=== PATIENT | male | born 1960 | race Caucasian/White ===

== ENCOUNTER 2017-02-22 10:31 | Emergency (ER) | payer MEDICAID ==
[~2017-02-22] VITALS: Ht 175.3 cm; Wt 72.6 kg
--- NOTE | 2017-02-22 10:36 | NUR ---
PT TO BED 5 AT THIS TIME BY EMS.
[2017-02-22 10:41] VITALS: BP 122/68
[2017-02-22] MEDS ORDERED: KETOROLAC 60 MG/2 ML VIAL IM ONE (10:55)
--- NOTE | 2017-02-22 11:24 | NUR ---
pt to x-ray via rosa
--- NOTE | 2017-02-22 11:40 | NUR ---
RETURNED FROM X-RAY---A/O X4 NO S/S RESP DISTRESS
--- NOTE | 2017-02-22 13:00 | NUR ---
PT ATE 100% OF LUNCH---CLEAN DRY CLOTHING REQUEST MADE TO SECURITY
--- NOTE | 2017-02-22 14:08 | NUR ---
NEW ANGEL EDUARDO AND SOCKS PROVIDED---PT VERY THANKFUL, A/O X4 FULL CLEAR SPEECH. TAXI VOUCHER PROVIDED WELL
[2017-02-22 14:10] VITALS: BP 133/79
--- NOTE | 2017-02-22 14:10 | NUR ---
Patient discharged with v/s stable. Written and verbal after care instructions given and explained. Patient alert, oriented and verbalized understanding of instructions. Wheel Chair Assisted with to car. All questions addressed prior to discharge. ID band removed. Patient advised to follow up with PMD. Rx of NAPROSYN given. Patient educated on indication of medication including possible reaction and side effects. Opportunity to ask questions provided and answered.
== END 2017-02-22 14:10 | disposition home or self-care (01) ==
LOC: MED 10:31
DX: S70.02XA Contusion of left hip, initial encounter (principal); S20.212A Contusion of left front wall of thorax, initial encounter; F10.10 Alcohol abuse, uncomplicated; G89.29 Other chronic pain; M54.9 Dorsalgia, unspecified; M54.2 Cervicalgia; K21.9 Gastro-esophageal reflux disease without esophagitis; F17.200 Nicotine dependence, unspecified, uncomplicated; W05.0XXA Fall from non-moving wheelchair, initial encounter; Y93.89 Activity, other specified; Y92.89 Other specified places as the place of occurrence of the external cause; Y99.8 Other external cause status
CPT/HCPCS: 71010; 72170; 73502; 96372; 99284; J1885

== ENCOUNTER 2022-03-18 12:54 | Inpatient (IN) | payer MEDICAID ==
[~2022-03-18] VITALS: Ht 175.3 cm; Wt 74.8 kg
[2022-03-18 13:04] VITALS: BP 128/72
--- NOTE | 2022-03-18 13:35 | NUR ---
DR SCHWARTZ AT BEDSIDE EVALUATING PT
--- NOTE | 2022-03-18 14:00 | NUR ---
Lab at bedside.
--- NOTE | 2022-03-18 14:04 | NUR ---
X-Ray at bedside.
[2022-03-18 14:09] LABS: BASOPHILS % (AUTO) 0.4 % (0.0-2.0); EOSINOPHILS # (AUTO) 0.1 K/uL (0-0.4); EOSINOPHILS % (AUTO) 1.1 % (0.0-4.0); HEMATOCRIT 37.3 % (36-52); HEMOGLOBIN 12.6 g/dL (12.0-18.0); LYMPHOCYTES # (AUTO) 1.6 K/uL (2.0-11.5); LYMPHOCYTES % (AUTO) 16.5 % (20.5-51.1); MEAN CORPUSCULAR HEMOGLOBIN 30 pg (27-31); MEAN CORPUSCULAR HGB CONC 34 g/dL (33-37); MEAN CORPUSCULAR VOLUME 90.3 fL (80-94); MONOCYTES # (AUTO) 0.9 K/uL (0.8-1.0); MONOCYTES % (AUTO) 8.8 % (1.7-9.3); NEUTROPHILS # (AUTO) 7.3 K/uL (1.8-7.7); NEUTROPHILS % (AUTO) 73.2 % (42.2-75.2); PLATELET COUNT (AUTO) 119 K/uL (140-450); RED BLOOD CELL COUNT(AUTO) 4.13 MIL/uL (4.20-6.10); RED CELL DISTRIBUTION WIDTH 17.4 % (11.6-13.7); WHITE BLOOD COUNT (AUTO) 9.9 K/uL (4.8-10.8)
[2022-03-18 14:23] LABS: PROTHROMBIN TIME 9.9 secs (10.8-13.4)
[2022-03-18 14:29] LABS: ALBUMIN 2.7 g/dL (3.4-5.0); ANION GAP 13.5 (8-16); CREATININE 0.8 mg/dL (0.6-1.3); POTASSIUM 3.5 mmol/L (3.5-5.1); TOTAL BILIRUBIN 1.5 mg/dL (0.0-1.0)
--- NOTE | 2022-03-18 14:56 | NUR ---
Ultrasound at bedside.
[2022-03-18 15:00] LABS: APPEARANCE,URINE CLEAR (CLEAR); BILIRUBIN,URINE 2+ (NEGATIVE); BLOOD, URINE 3+ (NEGATIVE); COLOR,URINE BROWN (YELLOW); LEUKOCYTE ESTERASE ,URINE 1+ (NEGATIVE); NITRITE, URINE POSITIVE (NEGATIVE); UGLUCOSE TRACE (NEGATIVE)
--- NOTE | 2022-03-18 15:12 | NUR ---
1 y/o male referred here from [facility] to r/o DVT. Patient is noted with +4 pitting edema to left leg. Patient is noted with a pressure sore to left heel. Patient has a large blister covering his whole top area of foot and is currently draining yellow clear liquid. Patient has two skin tears to left inner calf and left inner ankle. Patient has +2 pitting edema to right lower leg. Patient has 10/10 pain to legs. Patient has Hernandez Catheter in place. Medical History: BPH, HTN, "Kidney and Liver Problems" NKDA
[2022-03-18 15:17] LABS: RBC,URINE 11-20 (MOD) /HPF (0-5)
[2022-03-18 15:18] LABS: OTHER CASTS, URINE None Seen /LPF (None Seen)
[2022-03-18] MEDS ORDERED: NACL 0.9% 1,000 ML IV ONE ×2 (15:20→17:30)
[2022-03-18] MEDS ORDERED: cefTRIAXone 1,000 MG VIAL ONE (16:19)
[2022-03-18] MEDS ORDERED: ZOLPIDEM 10 MG TAB PO PRN (17:20)
[2022-03-18] MEDS ORDERED: DOCUSATE SODIUM 100 MG GELCAP PO PRN (17:20)
[2022-03-18] MEDS ORDERED: ONDANSETRON 4 MG/2 ML VIAL IVP PRN (17:20)
[2022-03-18] MEDS ORDERED: POTASSIUM CHLORIDE 10 MEQ TABER PO PRN (17:20)
[2022-03-18] MEDS ORDERED: MORPHINE SULFATE 2 MG/ML SYR IVP PRN (17:20)
[2022-03-18] MEDS ORDERED: ACETAMINOPHEN 325 MG TAB PO PRN (17:20)
[2022-03-18] MEDS ORDERED: ZOLPIDEM 5 MG TAB PO PRN (17:27)
--- NOTE | 2022-03-18 17:45 | NUR ---
Patient is resting in bed, respirations even and unlabored. All needs met by staff.
--- NOTE | 2022-03-18 19:11 | NUR ---
Vi-care rendered. Patient was made clean and dry.
--- NOTE | 2022-03-18 19:22 | NUR ---
Report given to PUMA Schwartz for transfer of care.
--- NOTE | 2022-03-18 20:02 | NUR ---
Patient will be admitted to care of DR SILVER. Admited to Med/Surg. Will go to room 125B. Belongings list completed. Report to PUMA GRAMAJO.
--- NOTE | 2022-03-18 20:40 | NUR ---
Admitted from ER TO MED SURGICAL UNIT, with chief complaint of PAIN AND SWELLING IN THE LEFT LEG STARTED THREE WEEKS AGO. 61 y/o ,Male, Cooperative,AWAKE, A/OX3. VERBALIZED HE WANTS MEDICATION FOR WITHDRAWAL SYMPTOMS. RESPIRATION EVEN AND UNLABORED. LUNGS CLEAR ON BILATERAL AUSCULTATION. ABDOMEN SOFT, NON-TENDER WITH POSITIVE BOWEL SOUNDS. IV OF NS INFUSING AT 100 ML/HR AT THE LEFT HAND G22. HEAD TO TOE ASSESSMENT DONE WITH PUMA ARANGO. PATIENT HAS MULTIPLE WOUNDS, LEFT HEEL, LEFT INNER ANKLE, LEFT INNER CALF CALF AND SACRAL. WITH F/C THAT WAS CHANGED IN ER DRAINING CLEAR DARK YELLOW URINE. PATIENT IS HOMELESS. NOTED PITTING EDEMA 3+ ON LEFT LOWER EXTREMITY. DENIES PAIN 0/10.oriented to call light, bed, phone,television, bathroom, smoking policy,visiting hours, procedures, ID bracelet on. Belongings list checked.
--- NOTE | 2022-03-18 21:30 | NUR ---
ELEVATED LEFT LEG ON 2 PILLOWS.
[2022-03-18] MEDS ORDERED: chlordiazePOXIDE 25 MG CAP PO SCH (21:55)
[2022-03-18] MEDS ORDERED: LORazepam 1 MG TAB PO PRN (21:55)
--- NOTE | 2022-03-18 22:15 | NUR ---
LIBRIUM 25MG/TAB P.O GIVEN ORDERED - BP 122/ 82 , HR 84 , 02 SAT 98 % - Addendum: 03/18/22 at 2223 by Ashli Parra RN @ 2205 PER PT HE IS DRINKING VODKA EVERYDAY , EXPRESSING CONCERN ABOUT ALCOHOL WITHDRAWAL - REFFERED TO DR. SILVER - DR. ADRIANNE LAURENT - WILL CARRY OUT
--- NOTE | 2022-03-18 22:19 | NUR ---
COMPLAINT OF FEELING SHAKY, VERBALIZED HE NEEDS MEDICATION FOR DTs. MEDICATED WITH LIBRIUM PER MD ORDER BY CONCHITA BARTHOLOMEW.
[2022-03-19] VITALS: BP 122/74
--- NOTE | 2022-03-19 | NUR ---
SLEEPING COMFORTABLY IN BED, RESPIRATION EVEN AND UNLABORED, CALL LIGHT IN REACH.
--- NOTE | 2022-03-19 03:41 | NUR ---
VOMITED A SMALL AMOUNT OF FLUIDS, MEDICATED WITH ZOFRAN PER MD ORDER BY CONCHITA BARTHOLOMEW.
--- NOTE | 2022-03-19 05:15 | NUR ---
COMPLAINT OF FEELING SHAKY, REQUESTING FOR MEDICATION FOR DTs, MEDICATED WITH ATIVAN PO PER MD ORDER.
[2022-03-19 05:39] LABS: BASOPHILS % (AUTO) 0.6 % (0.0-2.0); EOSINOPHILS # (AUTO) 0.2 K/uL (0-0.4); EOSINOPHILS % (AUTO) 1.8 % (0.0-4.0); HEMATOCRIT 33.9 % (36-52); HEMOGLOBIN 11.5 g/dL (12.0-18.0); LYMPHOCYTES # (AUTO) 1.2 K/uL (2.0-11.5); LYMPHOCYTES % (AUTO) 14.1 % (20.5-51.1); MEAN CORPUSCULAR HEMOGLOBIN 31 pg (27-31); MEAN CORPUSCULAR HGB CONC 34 g/dL (33-37); MEAN CORPUSCULAR VOLUME 90.2 fL (80-94); MONOCYTES # (AUTO) 0.7 K/uL (0.8-1.0); MONOCYTES % (AUTO) 8.7 % (1.7-9.3); NEUTROPHILS # (AUTO) 6.3 K/uL (1.8-7.7); NEUTROPHILS % (AUTO) 74.8 % (42.2-75.2); PLATELET COUNT (AUTO) 102 K/uL (140-450); RED BLOOD CELL COUNT(AUTO) 3.76 MIL/uL (4.20-6.10); RED CELL DISTRIBUTION WIDTH 17.9 % (11.6-13.7); WHITE BLOOD COUNT (AUTO) 8.4 K/uL (4.8-10.8)
[2022-03-19 05:52] LABS: ANION GAP 12.2 (8-16); CARBON DIOXIDE 28.1 mmol/L (21-32); CREATININE 0.6 mg/dL (0.6-1.3); POTASSIUM 3.3 mmol/L (3.5-5.1)
--- NOTE | 2022-03-19 06:15 | NUR ---
NO SHAKINESS NOTED, SLEEPING COMFORTABLY IN BED.
--- NOTE | 2022-03-19 07:30 | NUR ---
CONDITION REMAIN STABLE. ENDORSED TO AM SHIFT NURSE FOR CONTINUITY OF CARE.
--- NOTE | 2022-03-19 07:32 | NUR ---
REPORT RECEIVED FROM PIPELAYING FITTER NURSE. PATIENT LYING DOWN IN BED SLEEPING, AROUSABLE BY VOICE. NO DISTRESS NOTED. DENIES PAIN. IV SITE INTACT, PATENT, AND ON SALINE LOCK. AAOX2. REVIEWED PLAN OF CARE WITH PATIENT. VERBALIZED UNDERSTANDING. REINFORCEMENT NEEDED. SAFETY MEASURES IN PLACE, CALL LIGHT WITHIN REACH. WILL CONTINUE TO MONITOR.
[2022-03-19 08:00] VITALS: BP 134/65
--- NOTE | 2022-03-19 09:14 | NUR ---
PATIENT HAS BEEN SCREENED AND CATEGORIZED HIGH NUTRITION RISK. PATIENT WILL BE SEEN WITHIN 1-2 DAYS OF ADMISSION. CONSULT RECEIVED FOR WOUNDS/PRESSURE ULCERS. 03/20/22-03/21/22 REVIEWED BY GU[address]ERO FR[address] RD Addendum: 03/19/22 at [address] CORRECTION 03/19/22-03/20/22
[2022-03-19] MEDS: chlordiazePOXIDE 25 MG CAP PO SCH ×3 (09:26→17:42)
--- NOTE | 2022-03-19 09:26 | NUR ---
SCHEDULED MEDICATIONS DUE GIVEN. WILL CONTINUE TO MONITOR.
--- NOTE | 2022-03-19 10:15 | NUR ---
WOUND CARE EVALUATION NOTE: SKIN ASSESSMENT DONE WITH THIS 61 Y/O PT. WITH INITIAL C/O BILATERAL LEG SWELLING AND PAIN. PAST MEDICAL HX INCLUDES OF HYPERTENSION AND BPH AND LEFT HIP FRACTURE WITH PIN PLACEMENT. ALL ABOVE INFORMATION OBTAINED FROM ADMISSION H&P AND PT. PER PT. HE IS W/C LOPEZ, AND HE USES HIS LEG TO WALK AROUND WHILE IN W/C, HE DOES NOT FEEL ANY PAIN UNTIL THE SHOES BECOMES TOO TIGHT, INFORM PT. HIS COCCYX AND RIGHT BUTTOCK/ISCHIAL AREAS ALSO HAS WOUND, PER PT. HE IS NOT AWARE OF AND ATTEMPT TO OBTAIN WOUND PHOTOS, PT. REFUSES FOR PRIVACY REASON. PT IS AAX4. SKIN IS WARM AND MOIST, BLE NO HAIR GROWTH, +1 EDEMA RLE AND +3 LLE. DORSAL PEDAL PULSES PRESENT AND NORMAL. CAPILLARY REFILLED <2 SEC. X 10 TOES. PLAN OF CARE DISCUSSED WITH PRIMARY RN AND PT. PT. VERBALIZES UNDERSTANDING. INTEGUMENTARY: -PRESSURE INJURY STAGE 2, COCCYX 2X1CM, WOUND BED 100%PINK, MOIST, DEE-WOUND SKIN MOIST SURROUNDING REDNESS WITH FRICTION KIND ABRASION INDICATED FURTHER DAMAGE -PRESSURE INJURY UN-STAGEABLE, RIGHT ISCHAL 3X2.5CM, WOUND BED 100% BROWN, MOIST, NO ODOR, DEE-WOUND SKIN MOIST SURROUNDING REDNESS INDICATED FURTHER DAMAGE -LEFT HEEL PRESSURE INJURY UN-STAGEABLE, 5X3CM, 100% DARK BROWN DRY WOUND BED, DEE WOUND SKIN CRACK FISSURED SKIN, PAIN 0/10 -STASIS ULCER FROM LLE, LEFT LATERAL MALLEOLUS TO LEFT FOOT MULTIPLE PARTIAL THICKNESS SKIN LOSS WITH LARGEST TO LEFT LATERAL ANKLE 3.5X1.5X0.1CM WOUND BED 100%PINK, MOIST, DEE-WOUND SKIN MOIST SURROUNDING BLISTERING TO DORSAL FOOT 4X10CM. RECOMMENDATIONS: -APPLY THIN LAYER OF Z GUARD TO R/L GROINS AND SCROTAL AREA BID AND PRN IF SOILING, ELEVATED SCROTAL WITH ROLLED PILLOWCASE. -CLEANSE SACRALCOCCYX , RIGHT ISCHIAL WOUNDS WITH NS, PAT DRY AND APPLY THERAHONEY COVER WITH DRY DRESSING QD AND PRN IF SOILING - CLEANSE LLE WOUND AND BLISTERING SKIN WITH NS, PAT DRY, APPLY XEROFORM DRESSING, WRAP WITH KERLIX ROLL 3X/WEEK ON -W- AND PRN IF SOILING -LEFT HEEL APPLY MOIST BETADINE SOLUTION OIL EMULSION DRESSING, COVER WITH DRY DRESSING DAILY AND PRN IF SOILING APPLY HEEL RAISER AND OFFLOAD BILATERAL HEELS -POSITIONING: TURN AND REPOSITION PATIENT Q 2H OR SOONER USE PILLOWS TO KEEP BONY PROMINENCES FROM DIRECT CONTACT WITH SURFACES USE REPOSITIONING WEDGES TO PROVIDE 30-DEGREE ANGLE FOR SIDE LYING POSITIONS OFFLOADING OR FOAM DRESSING TO ALL TUBING TO PREVENT MEDICAL DEVICES RELATED PRESSURE INJURY -RE-EVALUATING AND MANAGING INCONTINENCE MONITOR SKIN CONDITION DURING POSITION CHANGE DO NOT MASSAGE REDNESS, BONY PROMINENCES, DO NOT USE DONUT-TYPE DEVICES FREQUENT DEE-CARE AND PROVIDE BARRIER CREAMS PRN IF SOILING MOISTURE CONTROL BY OFFER BED DIOP/URINAL /ABSORBENT PAD TO WICK AND HOLD MOISTURE. KEEP SKIN DRY AND PROTECT FROM FRICTION -MANAGE FRICTION/SHEAR/MOBILITY KEEP HOB AT THE LOWEST LEVEL OF ELEVATION NO MORE THAN 30 DEGREES UNLESS OTHERWISE CONTRAINDICATED USE LIFT SHEET OR TRANSFER DEVICE TO MOVE PATIENT AND PREVENT LATERAL SHEER. CONSIDER TRAPEZE IF APPROPRIATE PROTECT HEELS, ELBOWS BONY PROMINENCES WITH SKIN BERRIES OR FOAM DRESSING IF EXPOSED TO FRICTION OFFLOAD BILATERAL HEELS BY PLACING PILLOWS UNDER CALVES AT ALL TIMES, UNLESS OTHERWISE CONTRAINDICATED -PRESSURE REDISTRIBUTION SURFACE THERAPY ROSAURA ISOFLEX TESS MATTRESS -NUTRITION: PLEASE FOLLOW RD RECOMMENDATIONS AND OFFER NUTRITION SUPPLEMENTS IF ORDERED.
[2022-03-19] MEDS ORDERED: VANCOMYCIN PER PHARMACY MC PRN (11:10)
[2022-03-19] MEDS: MAG SULF 2000 MG/WATER PREMIX 50 ML IV PRN (11:39)
--- NOTE | 2022-03-19 11:39 | NUR ---
SCHEDULED MEDICATIONS DUE GIVEN. WILL CONTINUE TO MONITOR.
[2022-03-19] MEDS: PIPERACILLIN/TAZOBACTAM 3.375 GM in DEXTROSE 5% 50 ML IV SCH ×3 (12:58→23:50)
[2022-03-19] MEDS: VANCOMYCIN HCL 1.25 GM in DEXTROSE 5% 250 ML IV SCH (13:00)
--- NOTE | 2022-03-19 13:03 | NUR ---
DC [age] YRS OLD MALE HOMELESS PATIENT WAS ADMITTED FROM ER WITH A DX OF UTI. PATIENT HAS A HX OF HTN, AND BPH, BILATERAL LEG SWELLING WORSE IN LEFT LEG. FOOT X-RAY SHOWED NO FRACTURE OR DISLOCATION. XR LEFT TIBIA/FIBULA NO DEFINITE ACUTE FRACTURE IDENTIFIED. VENOUS DOPPLER NO DVT. URINE AND BLOOD CULTURE PENDING. ADMINISTERED IVF, IV ABX ZOSYN AND VANCOMYCIN. GAMING CAGE WORKER TO EVALUATE PATIENT FOR HOMELESSNESS. CM TO FOLLOW.
--- NOTE | 2022-03-19 13:49 | NUR ---
03/19/22 RD INITIAL ASSESSMENT COMPLETED PLEASE REFER TO NUTRITION ASSESSMENT UNDER CARE ACTIVITY FOR ESTIMATED NUTRITIONAL NEEDS. 1. CONTINUE REGULAR DIET TOLERATED 2. RECOMMEND PROSOURCE BID PER RD PROTOCOL 3. RD TO FOLLOW-UP 7 DAYS, LOW RISK GUERRERO FREDERICK RD
[2022-03-19] MEDS ORDERED: GAUZE TP PRN (14:35)
[2022-03-19 16:00] VITALS: BP 150/66
[2022-03-19] MEDS: GAUZE TP SCH (16:00)
--- NOTE | 2022-03-19 17:43 | NUR ---
SCHEDULED MEDICATIONS DUE GIVEN. WILL CONTINUE TO MONITOR.
--- NOTE | 2022-03-19 19:31 | NUR ---
RECEIVED PT ENDORSEMENT FROM DAY SHIFT NURSE FOR CONTINUITY OF CARE. PT IS AWAKE, ALERT, ORIENTED X 4. PT ABLE TO VERBALIZED NEEDS. PT IS ON BOBO CATHETER INTACT AND PATENT, URINE DRAINING FREELY INTO THE BOBO BAG BY GRAVITY, CLEAR WITH NO SEDIMENTATION, NO HEMATURIA. SALINE LOCK ON LEFT HAND INTACT AND PATENT. RIGHT LOWER LEG IS SWELLING WITH EDEMA + 3, LEFT LEG IS COVERED WITH DRY AND CLEAN DRESSING.
--- NOTE | 2022-03-19 19:32 | NUR ---
GAVE REPORT TO CLERICAL INVESTIGATOR NURSE FOR CONTINUITY OF CARE. PATIENT IN STABLE CONDITION.
--- NOTE | 2022-03-19 22:50 | NUR ---
PT COMPLAINTS OF HEART BURNING RADIATING TO THE CHEST, REPORTED TO DR. Sondra SAENZ MD PRESCRIBED PROTONIX 40MG X1 NOW AND DAILY. ORDER CARRIED OUT. GIVE SALTIN CRACKERS AND JELOW, PT VERBALIZED OF EFFECTIVE TO HELP TO DECREASE THE ACID.
[2022-03-19] MEDS ORDERED: PANTOPRAZOLE 40 MG TABEC PO SCH (23:05)
[2022-03-19] MEDS: MORPHINE SULFATE 2 MG/ML SYR IVP PRN (23:38)
[2022-03-20] VITALS: BP 107/66
[2022-03-20] MEDS: VANCOMYCIN HCL 1.25 GM in DEXTROSE 5% 250 ML IV SCH ×2 (01:37→13:29)
[2022-03-20] MEDS: PIPERACILLIN/TAZOBACTAM 3.375 GM in DEXTROSE 5% 50 ML IV SCH ×3 (06:00→18:03)
[2022-03-20 07:09] LABS: BASOPHILS # (AUTO) 0.1 K/uL (0.00-0.22); BASOPHILS % (AUTO) 0.7 % (0.0-2.0); EOSINOPHILS # (AUTO) 0.3 K/uL (0-0.4); EOSINOPHILS % (AUTO) 3.7 % (0.0-4.0); HEMATOCRIT 32.7 % (36-52); HEMOGLOBIN 11.2 g/dL (12.0-18.0); LYMPHOCYTES # (AUTO) 2.1 K/uL (2.0-11.5); LYMPHOCYTES % (AUTO) 23.8 % (20.5-51.1); MEAN CORPUSCULAR HEMOGLOBIN 31 pg (27-31); MEAN CORPUSCULAR HGB CONC 34 g/dL (33-37); MEAN CORPUSCULAR VOLUME 91.2 fL (80-94); MONOCYTES # (AUTO) 0.7 K/uL (0.8-1.0); MONOCYTES % (AUTO) 8.3 % (1.7-9.3); NEUTROPHILS # (AUTO) 5.7 K/uL (1.8-7.7); NEUTROPHILS % (AUTO) 63.5 % (42.2-75.2); PLATELET COUNT (AUTO) 128 K/uL (140-450); RED BLOOD CELL COUNT(AUTO) 3.59 MIL/uL (4.20-6.10); RED CELL DISTRIBUTION WIDTH 17.8 % (11.6-13.7); WHITE BLOOD COUNT (AUTO) 8.9 K/uL (4.8-10.8)
--- NOTE | 2022-03-20 07:24 | NUR ---
PT IS ON STABLE CONDITION, ALL SAFETY MEASURES IN PLACE. ENDORSED TO DAY SHIFT NURSE FOR CONTINUITY OF CARE.
[2022-03-20 08:00] VITALS: BP 147/69
--- NOTE | 2022-03-20 08:00 | NUR ---
GOT REPORT FROM THE NIGHT NURSE, PT AWAKE DISCUSSED PLAN OF CARE.[id number]
[2022-03-20 08:09] LABS: ANION GAP 10.4 (8-16); CARBON DIOXIDE 30.3 mmol/L (21-32); CREATININE 0.8 mg/dL (0.6-1.3); POTASSIUM 3.7 mmol/L (3.5-5.1)
[2022-03-20] MEDS: PANTOPRAZOLE 40 MG TABEC PO SCH (09:00)
[2022-03-20] MEDS: chlordiazePOXIDE 25 MG CAP PO SCH ×3 (09:36→16:51)
[2022-03-20] MEDS: MORPHINE SULFATE 2 MG/ML SYR IVP PRN ×2 (09:49→22:55)
--- NOTE | 2022-03-20 10:34 | NUR ---
PROTONIX 40MG PO GIVEN, AFTER VERIFYING WITH PHARMACIST. [id number]
[2022-03-20] MEDS: MAG SULF 2000 MG/WATER PREMIX 50 ML IV PRN (11:06)
[2022-03-20] MEDS: GAUZE TP SCH (13:00)
[2022-03-20] MEDS ORDERED: NON ADHERENT DRESSING TP SCH (13:00)
[2022-03-20 16:00] VITALS: BP 120/63
[2022-03-20] MEDS ORDERED: CHLORHEXADINE GLUC 2% CLOTH TP SCH (17:15)
[2022-03-20] MEDS ORDERED: MUPIROCIN CA NASAL 2% 1GM TUBE NS SCH (17:15)
--- NOTE | 2022-03-20 19:24 | NUR ---
RECEIVED ENDORSEMENT FROM DAY SHIFT NURSE FOR CONTINUITY OF CARE. PT IS AWAKE , ALERT AND RESPONSIVE VERBALLY. PT DOES NOT COMPLAINTS OF PAIN OR DISCOMFORT. SALINE LOCK IS INTACT AND PATENT. IV FLUID KVO IS INFUSING WELL, NO NOTED ANY REDNESS/RASHES OR SWELLING ON IV SITE. RIGHT FOOT IS COVERED WITH CLEAN AND DRY DRESSING. NO COMPLAINTS OF PAIN ON AFFECTED SITE. CONTINUE TO MONITOR
--- NOTE | 2022-03-20 19:24 | NUR ---
REVISED ON PREVIOUS LEG SITE. . PATIENT'S LEFT LEG IS COVERED WITH CLEAN AND DRY DRESSING, NOT RIGHT LEG.
--- NOTE | 2022-03-20 22:45 | NUR ---
PT VERBALIZED THAT HE DOES NOT HAVE BM MORE THAN 3 DAYS, ABDOMEN SLIGHTLY FIRM. PT DENIES OF NAUSEA OR VOMITING. STOOL SOFTENER PRN ADMINISTERED ORDER.
--- NOTE | 2022-03-20 22:55 | NUR ---
PT COMPLAINTS OF BOTH LOWER EXTREMITIES AND LOWER BACK PAIN OF 6/10. PAIN MEDICATION MORPHINE ADMINISTERED ORDER.
[2022-03-21] VITALS: BP 118/67
[2022-03-21] MEDS: PIPERACILLIN/TAZOBACTAM 3.375 GM in DEXTROSE 5% 50 ML IV SCH ×2 (00:45→06:02)
[2022-03-21] MEDS: VANCOMYCIN HCL 1.25 GM in DEXTROSE 5% 250 ML IV SCH (01:05)
--- NOTE | 2022-03-21 02:00 | NUR ---
PT COMPLAINTS OF INSOMNIA, ADMINISTERED MEDICATION AMBIEN ORDER.
[2022-03-21 07:13] LABS: BASOPHILS # (AUTO) 0.1 K/uL (0.00-0.22); BASOPHILS % (AUTO) 0.8 % (0.0-2.0); EOSINOPHILS # (AUTO) 0.3 K/uL (0-0.4); EOSINOPHILS % (AUTO) 4.8 % (0.0-4.0); HEMOGLOBIN 11.1 g/dL (12.0-18.0); LYMPHOCYTES # (AUTO) 1.6 K/uL (2.0-11.5); LYMPHOCYTES % (AUTO) 22.8 % (20.5-51.1); MEAN CORPUSCULAR HEMOGLOBIN 32 pg (27-31); MEAN CORPUSCULAR HGB CONC 35 g/dL (33-37); MEAN CORPUSCULAR VOLUME 91.3 fL (80-94); MONOCYTES # (AUTO) 0.8 K/uL (0.8-1.0); MONOCYTES % (AUTO) 11.2 % (1.7-9.3); NEUTROPHILS # (AUTO) 4.3 K/uL (1.8-7.7); NEUTROPHILS % (AUTO) 60.4 % (42.2-75.2); PLATELET COUNT (AUTO) 132 K/uL (140-450); RED CELL DISTRIBUTION WIDTH 18.1 % (11.6-13.7); WHITE BLOOD COUNT (AUTO) 7.1 K/uL (4.8-10.8)
--- NOTE | 2022-03-21 07:18 | NUR ---
PT IS ON STABLE CONDITION. ALL SAFETY MEASURES IN PLACE. ENDORSED TO DAY SHIFT NURSE FOR CONTINUITY OF CARE.
[2022-03-21 07:19] LABS: ANION GAP 10.1 (8-16); CARBON DIOXIDE 29.4 mmol/L (21-32); CREATININE 0.8 mg/dL (0.6-1.3); POTASSIUM 3.5 mmol/L (3.5-5.1)
[2022-03-21] MEDS: chlordiazePOXIDE 25 MG CAP PO SCH (08:39)
[2022-03-21] MEDS: PANTOPRAZOLE 40 MG TABEC PO SCH (08:39)
--- NOTE | 2022-03-21 12:16 | NUR ---
Patient pulled out IV and said wanted to go AMA. Patient signed AMA form. Informed Dr. Lares. Dr. lares said to explain risks of leaving and let patient go. BECKI Courtney, came to see patient. Iris journeyman powerhouse operator came to speak with patient.
--- NOTE | 2022-03-21 12:45 | NUR ---
Patient left with Quick catheter in to [facility]. Patient refused to let us take out quick.
== END 2022-03-21 12:30 | disposition left against medical advice (07) | DRG 383 ==
LOC: MED 12:54 → MMU 17:18
PROVIDERS: ADMIT Family Medicine; ATTEND Family Medicine
DX: L03.115 Cellulitis of right lower limb (principal); E44.0 Moderate protein-calorie malnutrition; E87.2 Acidosis; E83.51 Hypocalcemia; E87.1 Hypo-osmolality and hyponatremia; K52.9 Noninfective gastroenteritis and colitis, unspecified; L03.116 Cellulitis of left lower limb; N39.0 Urinary tract infection, site not specified; N40.0 Benign prostatic hyperplasia without lower urinary tract symptoms; E86.0 Dehydration; D64.9 Anemia, unspecified; E87.6 Hypokalemia; I10 Essential (primary) hypertension; Z68.24 Body mass index [BMI] 24.0-24.9, adult; Z20.822 Contact with and (suspected) exposure to COVID-19
CPT/HCPCS: 36415; 71045; 73590; 73620; 80048; 80053; 80202; 81001; 82550; 83605; 83735; 83880; 84484; 85025; 85610; 85730; 87040; 87081; 87086; 87186; 93005; 93971; 96361; 96365; 97163-GP; 97530; 99291; J0696; J2270; J2405; J2543; J3370; J3475; J7030; J7060; Q0092

== ENCOUNTER 2023-07-07 08:56 | Inpatient (IN) | payer MEDICAID ==
[~2023-07-07] VITALS: Ht 175.3 cm; Wt 72.6 kg
[2023-07-07 09:01] VITALS: BP 140/83; PULSE 87; RESP 19; TEMP 98.1; O2SAT 97
[2023-07-07] MEDS ORDERED: NACL 0.9% 1,000 ML IV ONE (10:00)
[2023-07-07 10:56] LABS: BASOPHILS # (AUTO) 0.1 K/uL (0.00-0.22); BASOPHILS % (AUTO) 0.6 % (0.0-2.0); EOSINOPHILS % (AUTO) 0.1 % (0.0-4.0); HEMATOCRIT 25.2 % (36-52); HEMOGLOBIN 8.3 g/dL (12.0-18.0); LYMPHOCYTES # (AUTO) 1.5 K/uL (2.0-11.5); LYMPHOCYTES % (AUTO) 14.9 % (20.5-51.1); MEAN CORPUSCULAR HEMOGLOBIN 29 pg (27-31); MEAN CORPUSCULAR HGB CONC 33 g/dL (33-37); MEAN CORPUSCULAR VOLUME 86.4 fL (80-94); MONOCYTES # (AUTO) 1.4 K/uL (0.8-1.0); MONOCYTES % (AUTO) 14.4 % (1.7-9.3); PLATELET COUNT (AUTO) 275 K/uL (140-450); RED BLOOD CELL COUNT(AUTO) 2.92 MIL/uL (4.20-6.10); RED CELL DISTRIBUTION WIDTH 20.7 % (11.6-13.7)
[2023-07-07 11:28] LABS: ALANINE AMINOTRANSFERASE 63 U/L (12-78); ALBUMIN 2.3 g/dL (3.4-5.0); ALCOHOL, BLOOD 99 mg/dL (<10); ALKALINE PHOSPHATASE 392 U/L (50-136); ANION GAP 13.9 (8-16); ASPARTATE AMINOTRANSFERASE 128 U/L (15-37); CALCIUM 7.8 mg/dL (8.5-10.1); CARBON DIOXIDE 26.8 mmol/L (21-32); CHLORIDE 98 mmol/L (98-107); CREATININE 0.7 mg/dL (0.6-1.3); GFR ARICAN-AMERICAN 146 mL/min (>90); GFR NON ARICAN-AMERICAN 121 mL/min (>90); GLUCOSE 91 mg/dL (74-106); LIPASE 42 U/L (16-77); POTASSIUM 3.7 mmol/L (3.5-5.1); SODIUM SERUM 135 mmol/L (136-145); TOTAL BILIRUBIN 1.4 mg/dL (0.0-1.0); UREA NITROGEN, BLOOD 13 mg/dL (7-18)
[2023-07-07 11:39] LABS: BILIRUBIN,URINE 1+ (NEGATIVE); BLOOD, URINE 3+ (NEGATIVE); COLOR,URINE YELLOW (YELLOW); LEUKOCYTE ESTERASE ,URINE TRACE (NEGATIVE); NITRITE, URINE POSITIVE (NEGATIVE); PROTEIN,URINE TRACE (NEGATIVE); UGLUCOSE NEGATIVE (NEGATIVE)
[2023-07-07 11:40] LABS: INR 0.96 (0.8-1.2); PARTIAL THROMBOPLASTIN TIME 24.8 secs (22-35.6); PROTHROMBIN TIME 10.1 secs (10.8-13.4)
[2023-07-07 11:41] LABS: APPEARANCE,URINE HAZY (CLEAR)
[2023-07-07 12:02] LABS: RBC,URINE 11-20 (MOD) /HPF (0-5)
[2023-07-07 12:03] LABS: BACTERIA,URINE 1+ /HPF (None Seen); SQUAMOUS EPITHELIAL CELL,UR 0-3 (FEW) /LPF (0-3 (FEW)); URINE AMORPHOUS PHOSPHATES 1+ /HPF (None Seen); WBC,URINE 0-5 /HPF (0-5)
[2023-07-07 12:09] LABS: ICTOTEST NEGATIVE (NEGATIVE)
[2023-07-07] MEDS ORDERED: FAMOTIDINE 20 MG/2 ML VIAL IVP ONE (12:40)
[2023-07-07] MEDS ORDERED: ceFAZolin 1,000 MG VIAL ONE (12:57)
[2023-07-07] MEDS ORDERED: ACETAMINOPHEN 325 MG TAB PO PRN (13:40)
[2023-07-07] MEDS ORDERED: chlordiazePOXIDE 25 MG CAP PO PRN (13:40)
[2023-07-07 13:44] LABS: LACTIC ACID 2.9 mmol/L (0.4-2.0)
[2023-07-07] MEDS ORDERED: FOLIC ACID 1 MG TAB PO SCH (15:00)
[2023-07-07] MEDS: DEXT 5% / NACL 0.45% 1,000 ML IV SCH ×2 (16:20→23:31)
[2023-07-07 18:05] LABS: PARTIAL THROMBOPLASTIN TIME 25.6 secs (22-35.6); PROTHROMBIN TIME 10.5 secs (10.8-13.4)
[2023-07-07 18:09] LABS: ANION GAP 10.6 (8-16); CALCIUM 7.4 mg/dL (8.5-10.1); CARBON DIOXIDE 25.8 mmol/L (21-32); CREATININE 0.6 mg/dL (0.6-1.3); POTASSIUM 3.4 mmol/L (3.5-5.1)
[2023-07-07] MEDS: HYDROcodone/APAP 5/325 MG 1 TAB TAB PO PRN (20:18)
[2023-07-07] MEDS: PANTOPRAZOLE 40 MG INJ VIAL IVP SCH (21:43)
[2023-07-07 22:27] VITALS: PULSE 78; RESP 18; O2SAT 99
[2023-07-08] VITALS: BP 135/76; PULSE 81; PULSE 87; RESP 18; TEMP 98; O2SAT 98
[2023-07-08] MEDS: HYDROcodone/APAP 5/325 MG 1 TAB TAB PO PRN ×4 (00:24→22:19)
[2023-07-08 04:00] VITALS: BP 106/69; PULSE 83; PULSE 87; RESP 18; TEMP 97.7; O2SAT 98
[2023-07-08] MEDS ORDERED: MAGNESIUM OXIDE 400 MG TAB PO ONE (06:05)
[2023-07-08] MEDS ORDERED: POTASSIUM CHLORIDE 10 MEQ TABER PO ONE (06:05)
[2023-07-08 07:04] LABS: BASOPHILS # (AUTO) 0.1 K/uL (0.00-0.22); BASOPHILS % (AUTO) 1.2 % (0.0-2.0); EOSINOPHILS # (AUTO) 0.1 K/uL (0-0.4); EOSINOPHILS % (AUTO) 1.7 % (0.0-4.0); HEMOGLOBIN 7.9 g/dL (12.0-18.0); LYMPHOCYTES # (AUTO) 1.5 K/uL (2.0-11.5); LYMPHOCYTES % (AUTO) 23.1 % (20.5-51.1); MEAN CORPUSCULAR HEMOGLOBIN 28 pg (27-31); MEAN CORPUSCULAR HGB CONC 33 g/dL (33-37); MEAN CORPUSCULAR VOLUME 86.1 fL (80-94); MONOCYTES # (AUTO) 0.8 K/uL (0.8-1.0); MONOCYTES % (AUTO) 12.7 % (1.7-9.3); NEUTROPHILS # (AUTO) 3.9 K/uL (1.8-7.7); NEUTROPHILS % (AUTO) 61.3 % (42.2-75.2); PLATELET COUNT (AUTO) 258 K/uL (140-450); RED BLOOD CELL COUNT(AUTO) 2.79 MIL/uL (4.20-6.10); RED CELL DISTRIBUTION WIDTH 20.4 % (11.6-13.7); WHITE BLOOD COUNT (AUTO) 6.3 K/uL (4.8-10.8)
[2023-07-08 07:28] LABS: MAGNESIUM 1.5 mg/dL (1.8-2.4)
[2023-07-08 08:00] VITALS: BP 136/67; PULSE 75; PULSE 81; PULSE 87; RESP 18; TEMP 98.2; O2SAT 97; O2SAT 98
[2023-07-08] MEDS ORDERED: MAGNESIUM OXIDE 400 MG TAB PO SCH (09:16)
[2023-07-08] MEDS ORDERED: POTASSIUM CHLORIDE 10 MEQ TABER PO SCH (09:17)
[2023-07-08] MEDS: THIAMINE 200 MG/2 ML VIAL IM SCH (09:37)
[2023-07-08] MEDS: FOLIC ACID 1 MG TAB PO SCH (09:37)
[2023-07-08] MEDS: PANTOPRAZOLE 40 MG INJ VIAL IVP SCH ×2 (09:37→21:43)
[2023-07-08 09:50] LABS: ANION GAP 10.9 (8-16); CALCIUM 7.7 mg/dL (8.5-10.1); CARBON DIOXIDE 25.3 mmol/L (21-32); CREATININE 0.6 mg/dL (0.6-1.3); POTASSIUM 3.2 mmol/L (3.5-5.1)
[2023-07-08] MEDS: DEXT 5% / NACL 0.45% 1,000 ML IV SCH (09:57)
[2023-07-08] MEDS ORDERED: ALGINATE ROPE MC PRN (10:35)
[2023-07-08] MEDS ORDERED: FOAM DRESSING TP PRN (10:35)
[2023-07-08] MEDS ORDERED: HYDRAGUARD CREAM TP PRN (10:35)
[2023-07-08] MEDS: HYDRAGUARD CREAM TP SCH (12:56)
[2023-07-08] MEDS: FOAM DRESSING TP SCH (13:00)
[2023-07-08] MEDS: ALGINATE ROPE MC SCH (13:00)
[2023-07-08 16:00] VITALS: BP 125/63; PULSE 87; RESP 18; TEMP 98.8; O2SAT 99
[2023-07-08 20:00] VITALS: BP 120/60; PULSE 77; RESP 18; TEMP 97.4; O2SAT 100
[2023-07-09] MEDS: HYDRAGUARD CREAM TP SCH ×2 (01:00→13:00)
[2023-07-09 04:00] VITALS: BP 128/62; PULSE 74; RESP 18; TEMP 97.1; O2SAT 100
[2023-07-09] MEDS: DEXT 5% / NACL 0.45% 1,000 ML IV SCH (04:14)
[2023-07-09 06:53] LABS: BASOPHILS # (AUTO) 0.1 K/uL (0.00-0.22); BASOPHILS % (AUTO) 1.9 % (0.0-2.0); EOSINOPHILS # (AUTO) 0.2 K/uL (0-0.4); EOSINOPHILS % (AUTO) 3.2 % (0.0-4.0); HEMATOCRIT 23.4 % (36-52); HEMOGLOBIN 7.6 g/dL (12.0-18.0); LYMPHOCYTES # (AUTO) 1.4 K/uL (2.0-11.5); LYMPHOCYTES % (AUTO) 24.6 % (20.5-51.1); MEAN CORPUSCULAR HEMOGLOBIN 28 pg (27-31); MEAN CORPUSCULAR HGB CONC 33 g/dL (33-37); MEAN CORPUSCULAR VOLUME 86.9 fL (80-94); MONOCYTES # (AUTO) 0.6 K/uL (0.8-1.0); MONOCYTES % (AUTO) 11.4 % (1.7-9.3); NEUTROPHILS # (AUTO) 3.3 K/uL (1.8-7.7); NEUTROPHILS % (AUTO) 58.9 % (42.2-75.2); PLATELET COUNT (AUTO) 290 K/uL (140-450); RED BLOOD CELL COUNT(AUTO) 2.69 MIL/uL (4.20-6.10); RED CELL DISTRIBUTION WIDTH 20.2 % (11.6-13.7); WHITE BLOOD COUNT (AUTO) 5.5 K/uL (4.8-10.8)
[2023-07-09 08:00] VITALS: BP 134/71; PULSE 75; RESP 18; TEMP 97.4; O2SAT 98
[2023-07-09] MEDS ORDERED: POTASSIUM CHLORIDE 10 MEQ TABER PO PRN (08:00)
[2023-07-09] MEDS ORDERED: MAG SULF 2000 MG/WATER PREMIX 50 ML IV PRN (08:00)
[2023-07-09] MEDS ORDERED: ZOLPIDEM 10 MG TAB PO PRN (08:00)
[2023-07-09] MEDS ORDERED: ONDANSETRON 4 MG/2 ML VIAL IVP PRN (08:00)
[2023-07-09] MEDS: THIAMINE 200 MG/2 ML VIAL IM SCH (08:10)
[2023-07-09] MEDS: PANTOPRAZOLE 40 MG INJ VIAL IVP SCH ×2 (08:11→22:57)
[2023-07-09] MEDS: FOLIC ACID 1 MG TAB PO SCH (08:12)
[2023-07-09] MEDS: FOAM DRESSING TP SCH (13:00)
[2023-07-09] MEDS: ALGINATE ROPE MC SCH (13:00)
[2023-07-09] MEDS ORDERED: diphenhydrAMINE 50 MG/ML VIAL ONE (13:17)
[2023-07-09] MEDS ORDERED: fentaNYL citrate 0.05 MG/ML VIAL ONE (13:17)
[2023-07-09] MEDS ORDERED: MIDAZOLAM 2 MG/2 ML VIAL ONE (13:18)
[2023-07-09] MEDS ORDERED: MIDAZOLAM 2 MG/2 ML VIAL IVP ONE (14:40)
[2023-07-09] MEDS ORDERED: fentaNYL citrate 0.05 MG/ML VIAL IVP ONE (14:40)
[2023-07-09] MEDS: GABAPENTIN 100 MG CAP PO SCH ×2 (14:50→17:00)
[2023-07-09 16:00] VITALS: BP 122/67; PULSE 95; RESP 18; TEMP 97.6; O2SAT 98
[2023-07-09] MEDS: FERROUS GLUCONATE 324 MG TAB PO SCH (17:00)
[2023-07-09 20:00] VITALS: BP 128/68; PULSE 80; PULSE 86; RESP 20; TEMP 98.8; O2SAT 95; O2SAT 99
[2023-07-09] MEDS: HYDROcodone/APAP 5/325 MG 1 TAB TAB PO PRN (22:58)
[2023-07-10] VITALS: BP 132/72; PULSE 80; RESP 16; TEMP 98.4; O2SAT 93
[2023-07-10] MEDS: HYDRAGUARD CREAM TP SCH ×2 (01:00→16:15)
[2023-07-10 04:00] VITALS: BP 122/70; PULSE 78; RESP 18; TEMP 97; O2SAT 92
[2023-07-10 06:48] LABS: BASOPHILS # (AUTO) 0.1 K/uL (0.00-0.22); BASOPHILS % (AUTO) 1.4 % (0.0-2.0); EOSINOPHILS # (AUTO) 0.2 K/uL (0-0.4); HEMATOCRIT 23.5 % (36-52); HEMOGLOBIN 7.6 g/dL (12.0-18.0); LYMPHOCYTES # (AUTO) 1.5 K/uL (2.0-11.5); LYMPHOCYTES % (AUTO) 25.7 % (20.5-51.1); MEAN CORPUSCULAR HEMOGLOBIN 28 pg (27-31); MEAN CORPUSCULAR HGB CONC 32 g/dL (33-37); MEAN CORPUSCULAR VOLUME 87.1 fL (80-94); MONOCYTES # (AUTO) 0.9 K/uL (0.8-1.0); MONOCYTES % (AUTO) 15.8 % (1.7-9.3); NEUTROPHILS % (AUTO) 53.1 % (42.2-75.2); PLATELET COUNT (AUTO) 297 K/uL (140-450); RED BLOOD CELL COUNT(AUTO) 2.69 MIL/uL (4.20-6.10); RED CELL DISTRIBUTION WIDTH 20.4 % (11.6-13.7); WHITE BLOOD COUNT (AUTO) 5.7 K/uL (4.8-10.8)
[2023-07-10 08:00] VITALS: BP 145/67; PULSE 50; PULSE 75; RESP 18; RESP 20; TEMP 97; O2SAT 98
[2023-07-10] MEDS: GABAPENTIN 100 MG CAP PO SCH ×3 (09:18→16:40)
[2023-07-10] MEDS: FOLIC ACID 1 MG TAB PO SCH (09:18)
[2023-07-10] MEDS: THIAMINE 200 MG/2 ML VIAL IM SCH (09:19)
[2023-07-10] MEDS: FERROUS GLUCONATE 324 MG TAB PO SCH ×2 (09:27→16:39)
[2023-07-10 16:00] VITALS: BP 110/65; PULSE 80; RESP 20; TEMP 97.9; O2SAT 100
[2023-07-10] MEDS: ALGINATE ROPE MC SCH (16:15)
[2023-07-10] MEDS: FOAM DRESSING TP SCH (16:15)
[2023-07-10] MEDS: PANTOPRAZOLE 40 MG INJ VIAL IVP SCH ×2 (16:44→21:39)
[2023-07-10] MEDS: MEROPENEM 1,000 MG in NACL 0.9% 50 ML IV SCH ×2 (16:44→21:39)
[2023-07-10 20:00] VITALS: BP 127/64; PULSE 73; PULSE 96; RESP 19; TEMP 99.4; O2SAT 98
[2023-07-11] MEDS: HYDRAGUARD CREAM TP SCH ×2 (01:00→14:30)
[2023-07-11] MEDS: MEROPENEM 1,000 MG in NACL 0.9% 50 ML IV SCH ×3 (05:05→20:47)
[2023-07-11 07:00] LABS: BASOPHILS # (AUTO) 0.1 K/uL (0.00-0.22); BASOPHILS % (AUTO) 1.6 % (0.0-2.0); EOSINOPHILS # (AUTO) 0.2 K/uL (0-0.4); HEMATOCRIT 25.3 % (36-52); HEMOGLOBIN 8.2 g/dL (12.0-18.0); LYMPHOCYTES # (AUTO) 1.3 K/uL (2.0-11.5); LYMPHOCYTES % (AUTO) 20.9 % (20.5-51.1); MEAN CORPUSCULAR HEMOGLOBIN 28 pg (27-31); MEAN CORPUSCULAR HGB CONC 32 g/dL (33-37); MEAN CORPUSCULAR VOLUME 87.2 fL (80-94); MONOCYTES # (AUTO) 0.9 K/uL (0.8-1.0); NEUTROPHILS # (AUTO) 3.8 K/uL (1.8-7.7); NEUTROPHILS % (AUTO) 60.5 % (42.2-75.2); PLATELET COUNT (AUTO) 320 K/uL (140-450); WHITE BLOOD COUNT (AUTO) 6.3 K/uL (4.8-10.8)
[2023-07-11 08:00] VITALS: BP 148/71; PULSE 74; RESP 17; TEMP 98.5; O2SAT 100
[2023-07-11] MEDS: FOLIC ACID 1 MG TAB PO SCH (09:00)
[2023-07-11] MEDS: THIAMINE 200 MG/2 ML VIAL IM SCH (09:00)
[2023-07-11] MEDS: PANTOPRAZOLE 40 MG INJ VIAL IVP SCH ×2 (09:00→20:47)
[2023-07-11] MEDS: GABAPENTIN 100 MG CAP PO SCH ×3 (09:01→17:48)
[2023-07-11] MEDS: FERROUS GLUCONATE 324 MG TAB PO SCH ×2 (09:01→17:48)
[2023-07-11] MEDS: HYDROcodone/APAP 5/325 MG 1 TAB TAB PO PRN (09:02)
[2023-07-11] MEDS: FOAM DRESSING TP SCH (14:30)
[2023-07-11] MEDS: ALGINATE ROPE MC SCH (14:30)
[2023-07-11 16:00] VITALS: BP 117/58; PULSE 76; RESP 17; TEMP 98.8; O2SAT 99
[2023-07-11 20:00] VITALS: PULSE 72; RESP 17; O2SAT 93
[2023-07-12] VITALS: BP 109/52; PULSE 72; RESP 17; TEMP 97.3; O2SAT 93
[2023-07-12] MEDS: HYDRAGUARD CREAM TP SCH ×2 (01:13→17:35)
[2023-07-12] MEDS: HYDROcodone/APAP 5/325 MG 1 TAB TAB PO PRN ×3 (03:48→17:21)
[2023-07-12 04:00] VITALS: BP 131/52; PULSE 81; RESP 17; TEMP 97.2; O2SAT 100
[2023-07-12] MEDS: MEROPENEM 1,000 MG in NACL 0.9% 50 ML IV SCH ×3 (05:22→22:17)
[2023-07-12] MEDS: MORPHINE SULFATE 2 MG/ML SYR IVP PRN ×2 (05:39→23:31)
[2023-07-12 06:41] LABS: BASOPHILS # (AUTO) 0.1 K/uL (0.00-0.22); BASOPHILS % (AUTO) 1.5 % (0.0-2.0); EOSINOPHILS # (AUTO) 0.3 K/uL (0-0.4); EOSINOPHILS % (AUTO) 4.8 % (0.0-4.0); HEMATOCRIT 24.7 % (36-52); LYMPHOCYTES # (AUTO) 1.7 K/uL (2.0-11.5); LYMPHOCYTES % (AUTO) 24.7 % (20.5-51.1); MEAN CORPUSCULAR HEMOGLOBIN 28 pg (27-31); MEAN CORPUSCULAR HGB CONC 32 g/dL (33-37); MEAN CORPUSCULAR VOLUME 87.7 fL (80-94); MONOCYTES # (AUTO) 1.1 K/uL (0.8-1.0); MONOCYTES % (AUTO) 15.7 % (1.7-9.3); NEUTROPHILS # (AUTO) 3.6 K/uL (1.8-7.7); NEUTROPHILS % (AUTO) 53.3 % (42.2-75.2); PLATELET COUNT (AUTO) 315 K/uL (140-450); RED BLOOD CELL COUNT(AUTO) 2.82 MIL/uL (4.20-6.10); RED CELL DISTRIBUTION WIDTH 20.6 % (11.6-13.7); WHITE BLOOD COUNT (AUTO) 6.8 K/uL (4.8-10.8)
[2023-07-12 07:09] LABS: ANION GAP 10.2 (8-16); CALCIUM 7.9 mg/dL (8.5-10.1); CARBON DIOXIDE 27.1 mmol/L (21-32); CREATININE 0.8 mg/dL (0.6-1.3); POTASSIUM 4.3 mmol/L (3.5-5.1); TOTAL BILIRUBIN 0.6 mg/dL (0.0-1.0); TOTAL PROTEIN, SERUM 6.7 g/dL (6.4-8.2)
[2023-07-12 08:00] VITALS: PULSE 72
[2023-07-12] MEDS: FERROUS GLUCONATE 324 MG TAB PO SCH ×2 (08:15→17:20)
[2023-07-12] MEDS: GABAPENTIN 100 MG CAP PO SCH ×3 (08:15→17:20)
[2023-07-12] MEDS: THIAMINE 200 MG/2 ML VIAL IM SCH (08:15)
[2023-07-12] MEDS: FOLIC ACID 1 MG TAB PO SCH (08:15)
[2023-07-12] MEDS: PANTOPRAZOLE 40 MG INJ VIAL IVP SCH ×2 (10:36→22:18)
[2023-07-12 16:00] VITALS: BP 115/60; PULSE 75; RESP 20; TEMP 98.2; O2SAT 100
[2023-07-12] MEDS: ALGINATE ROPE MC SCH (17:35)
[2023-07-12] MEDS: FOAM DRESSING TP SCH (17:35)
[2023-07-12 20:00] VITALS: BP 130/56; PULSE 100; PULSE 78; RESP 17; RESP 20; TEMP 98.2; O2SAT 100
[2023-07-13] MEDS: HYDRAGUARD CREAM TP SCH ×2 (05:39→14:10)
[2023-07-13] MEDS: MEROPENEM 1,000 MG in NACL 0.9% 50 ML IV SCH ×2 (05:40→13:55)
[2023-07-13] MEDS: MORPHINE SULFATE 2 MG/ML SYR IVP PRN (05:50)
[2023-07-13 07:32] LABS: ALBUMIN 1.9 g/dL (3.4-5.0); ANION GAP 9.2 (8-16); CALCIUM 7.9 mg/dL (8.5-10.1); CARBON DIOXIDE 26.9 mmol/L (21-32); CREATININE 0.8 mg/dL (0.6-1.3); POTASSIUM 4.1 mmol/L (3.5-5.1); TOTAL BILIRUBIN 0.6 mg/dL (0.0-1.0); TOTAL PROTEIN, SERUM 6.4 g/dL (6.4-8.2)
[2023-07-13 08:00] VITALS: TEMP 98.1
[2023-07-13] MEDS: FERROUS GLUCONATE 324 MG TAB PO SCH ×2 (08:56→16:57)
[2023-07-13] MEDS: FOLIC ACID 1 MG TAB PO SCH (08:57)
[2023-07-13] MEDS: GABAPENTIN 300 MG CAP PO SCH ×3 (08:59→16:56)
[2023-07-13] MEDS: THIAMINE 200 MG/2 ML VIAL IM SCH (09:05)
[2023-07-13] MEDS: PANTOPRAZOLE 40 MG INJ VIAL IVP SCH (09:05)
[2023-07-13 09:17] LABS: BASOPHILS # (AUTO) 0.1 K/uL (0.00-0.22); BASOPHILS % (AUTO) 2.8 % (0.0-2.0); EOSINOPHILS # (AUTO) 0.3 K/uL (0-0.4); EOSINOPHILS % (AUTO) 6.4 % (0.0-4.0); HEMATOCRIT 25.6 % (36-52); HEMOGLOBIN 8.2 g/dL (12.0-18.0); LYMPHOCYTES # (AUTO) 1.6 K/uL (2.0-11.5); LYMPHOCYTES % (AUTO) 28.7 % (20.5-51.1); MEAN CORPUSCULAR HEMOGLOBIN 28 pg (27-31); MEAN CORPUSCULAR HGB CONC 32 g/dL (33-37); MEAN CORPUSCULAR VOLUME 88.2 fL (80-94); MONOCYTES # (AUTO) 1.1 K/uL (0.8-1.0); MONOCYTES % (AUTO) 21.1 % (1.7-9.3); NEUTROPHILS # (AUTO) 2.2 K/uL (1.8-7.7); PLATELET COUNT (AUTO) 298 K/uL (140-450); RED BLOOD CELL COUNT(AUTO) 2.91 MIL/uL (4.20-6.10); RED CELL DISTRIBUTION WIDTH 20.9 % (11.6-13.7); WHITE BLOOD COUNT (AUTO) 5.4 K/uL (4.8-10.8)
[2023-07-13 10:14] VITALS: BP 132/72; PULSE 100; PULSE 77; RESP 17; RESP 18; TEMP 98.1; O2SAT 100
[2023-07-13] MEDS: ALGINATE ROPE MC SCH (13:55)
[2023-07-13] MEDS: FOAM DRESSING TP SCH (13:55)
[2023-07-13] MEDS ORDERED: PANTOPRAZOLE 40 MG TABEC PO SCH (16:30)
[2023-07-13 16:35] VITALS: BP 131/64; PULSE 86; RESP 18; TEMP 98.2; O2SAT 99
[2023-07-13] MEDS ORDERED: carisoprodoL 350 MG TAB PO SCH (17:00)
[2023-07-13] MEDS ORDERED: PANT40EC PO (19:14)
[2023-07-13] MEDS ORDERED: MERO1VIA15 IV (19:14)
[2023-07-13] MEDS ORDERED: VITA1TAB44 PO (19:14)
[2023-07-13] MEDS ORDERED: GABA300C PO (19:15)
[2023-07-13] MEDS ORDERED: FERR324T11 PO (19:15)
[2023-07-13] MEDS ORDERED: VITB12 PO (19:15)
[2023-07-13] MEDS ORDERED: CARI350T PO (19:16)
== END 2023-07-13 20:50 | DRG 720 ==
LOC: MED 08:56 → MTU 13:49
PROVIDERS: ADMIT Family Medicine; ATTEND Family Medicine
PROC: 05HY33Z Insertion of Infusion Device into Upper Vein, Percutaneous Approach (ICD-10-PCS; 2023-07-09)
PROC: 0DB58ZX Excision of Esophagus, Via Natural or Artificial Opening Endoscopic, Diagnostic (ICD-10-PCS; principal; 2023-07-09 13:00)
DX: A41.9 Sepsis, unspecified organism (principal); K22.11 Ulcer of esophagus with bleeding; E46 Unspecified protein-calorie malnutrition; L89.309 Pressure ulcer of unspecified buttock, unspecified stage; D63.8 Anemia in other chronic diseases classified elsewhere; K70.30 Alcoholic cirrhosis of liver without ascites; F10.129 Alcohol abuse with intoxication, unspecified; D50.0 Iron deficiency anemia secondary to blood loss (chronic); L03.115 Cellulitis of right lower limb; D64.89 Other specified anemias; N39.0 Urinary tract infection, site not specified; L03.116 Cellulitis of left lower limb; Z16.12 Extended spectrum beta lactamase (ESBL) resistance; R65.20 Severe sepsis without septic shock; F10.139 Alcohol abuse with withdrawal, unspecified; K21.00 Gastro-esophageal reflux disease with esophagitis, without bleeding; N40.0 Benign prostatic hyperplasia without lower urinary tract symptoms; K44.9 Diaphragmatic hernia without obstruction or gangrene; Y90.9 Presence of alcohol in blood, level not specified; E87.6 Hypokalemia; E83.42 Hypomagnesemia; D64.9 Anemia, unspecified; G62.9 Polyneuropathy, unspecified; Z59.00 Homelessness unspecified; Z68.23 Body mass index [BMI] 23.0-23.9, adult
CPT/HCPCS: 36415; 71045; 80048; 80053; 81001; 83605; 83690; 83735; 84100; 84484; 85025; 85610; 85730; 86886; 86900; 86901; 87040; 87081; 87086; 93005; 96361; 96365; 96375; 99285; C9113; G0482; J0690; J0696; J1200; J2185; J2250; J2270; J2405; J3010; J3411; J3490; J7030; J7060; Q0163